=== PATIENT | female | born 1995 | race Caucasian/White ===

== ENCOUNTER 2017-03-04 09:30 | Outpatient (CLI) | payer BC, OTHER ==
[2017-03-04] MEDS ORDERED: SINCALIDE 1.3 MCG in SODIUM CHLORIDE 0.9% 100ML 100 ML IV ONE (11:59)
== END 2017-03-04 09:31 | disposition home or self-care (01) ==
DX: K80.80 Other cholelithiasis without obstruction (principal)
CPT/HCPCS: 78227; A9537

== ENCOUNTER 2017-03-16 12:34 | Outpatient (CLI) | payer BC, OTHER ==
[2017-03-16] MEDS ORDERED: IOPAMIDOL-300 50 ML VIAL PO ONE (17:27)
[2017-03-16] MEDS ORDERED: IOPAMIDOL-300 100 ML VIAL IVP ONE (17:27)
== END 2017-03-16 12:35 | disposition home or self-care (01) ==
DX: R10.9 Unspecified abdominal pain (principal)
CPT/HCPCS: 74178; Q9967

== ENCOUNTER 2017-04-05 09:39 | Day surgery (SDC) | payer BC, OTHER ==
[2017-04-05] MEDS ORDERED: ceFAZolin 2 GM/50 ML 50 ML IV ONE (09:45)
[2017-04-05 10:05] LABS: HCG UR QUAL NEGATIVE
[2017-04-05] MEDS ORDERED: LACTATED RINGERS 1,000 ML IV ONE ×2 (10:10→12:32)
[2017-04-05] MEDS ORDERED: NEOSTIGMINE 1 MG/1 ML 10 ML MDV IVP ONE (12:00)
[2017-04-05] MEDS ORDERED: SUCCINYLCHOLINE 200 MG/10 ML VIAL IVP ONE (12:00)
[2017-04-05] MEDS ORDERED: GLYCOPYRROLATE 1 MG/5 ML VIAL IVP ONE (12:00)
[2017-04-05] MEDS ORDERED: DEXAMETHASONE 4 MG/ML VIAL IVP ONE (12:00)
[2017-04-05] MEDS ORDERED: LIDOCAINE-PF 2% 10 ML AMP SUBQ ONE (12:00)
[2017-04-05] MEDS ORDERED: PROPOFOL 200 MG/20 ML VIAL IVP ONE (12:00)
[2017-04-05] MEDS ORDERED: ONDANSETRON 4 MG/2 ML VIAL IVP ONE (12:00)
[2017-04-05] MEDS ORDERED: ROCURONIUM 50 MG/5 ML VIAL IVP ONE (12:00)
[2017-04-05] MEDS ORDERED: ACETAMINOPHEN 1,000 MG/100 ML VIAL IV ONE (12:00)
[2017-04-05] MEDS ORDERED: MIDAZOLAM 2 MG/2 ML VIAL IVP ONE (12:00)
[2017-04-05] MEDS ORDERED: fentaNYL 100 MCG/2 ML VIAL IVP ONE (12:00)
[2017-04-05] MEDS ORDERED: BUPIVACAINE 0.5% PF 30 ML VIAL INFIL ONE (12:25)
--- NOTE | 2017-04-05 13:24 | OPERATIVE REPORT ---
Operative Report - General Procedure Date: 04/05/17 Planned Procedure: Laparoscopic cholecystectomy, possible open cholecystectomy, possible IOC, Pre-Op Diagnosis: Biliary colic Post Op Diagnosis: Biliary colic - Procedure Note Primary Surgeon: Mitch Anesthesia Provider: Ari Garrido Anesthesia Technique: General ET tube, Spinal (30 mL 1/2% marcaine) Estimated Blood Loss (in cc): 5 Drain/Tube Type: negative: Son drain, Constavac drain, Hemovac, Pantera Hameed flat drain, Pantera Hameed round drain, Pantera Hameed drain, Lumbar drain, Nephrostomy, Alison, Pig tail catheter, Self contained, T-tube, Other Complications: None but fluids = 800 mL - Other Other Information/Narrative: OPERATIVE DETAILS: After verbal and written informed consent was obtained detailing the risks of infection, bleeding with all of its risks including transfusion, common bile duct injury, and the patient was brought to the operative suite and placed in the supine position on the operating room table. Monitoring devices were applied along with TEDs and pneumatic compressive stockings. Care was taken to avoid pressure points. Prophylactic antibiotics were given. An adequate level of general endotracheal anesthesia was established by [name]. The abdomen was then prepped with ChloraPrep and draped in a sterile fashion. A "time in" then confirmed that the paitient was identified with 3 identifiers ( name, birthdate and medical record number), the history and physical was in the chart, the signed consent confirming the procedure was in the chart, the patient was in the correct position, the aforementioned prophylactic measures were in place or given, we had the correct personel and equipment to complete the procedure and that anesthesia, surgery and nursing were given an opportunuty to express any concerns. The initial incision was at the umbilicus and dissection to the linea alba was completed using blunt dissection. The linea alba was grasped with a Citlaly and incised. In a similar manner the peritoneum was grasped and incised using Metzenbaum scissors. In this location, a 12 mm blunt tipped, balloon tipped port was placed and the balloon was inflated to keep the port in position. The abdominal cavity was insufflated with carbon dioxide to steady-state pressure of 15 mmHg. Three additional 5 mm ports were placed in standard location for laparoscopic cholecystectomy (subxiphoid and 2 right subcostal). The gallbladder fundus was grasped with an atraumatic grasper. Multiple adhesions had to be taken down by blunt and sharp dissection along with electrocautery. Eventually, we identified the infundibulum, and this was then grasped and retracted inferior and laterally. Dissection was then begun in the angle of Calot. The cystic duct and (slightly medially and posteriorly) cystic artery were clearly identified. The critical view was obtained. Two clips proximally and one clip distally were used to control both the cystic duct and cystic artery. Both were then transected with laparoscopic theresa. The gallbladder was then removed from its fossa in a retrograde fashion using electrocautery. It was placed in an EndoCatch bag to be extracted through the 12 mm port site. I irrigated the right upper quadrant with a liter of warm sterile saline, and the area was aspirated dry. I inspected the gallbladder fossa and there was no bleeding or bile leak. Clips on the cystic duct and cystic artery appeared to be secure. I briefly visually explored the abdomen. There was no other evidence of overt pathology. I injected the port sites at the peritoneal, fascial, and skin levels under direct vision with 0.5% Marcaine. All ports and the EndoCatch containing the gallbladder were removed. The fascia at the umbilicus was reapproximated using 2 figure-of- eight 0 Vicryl sutures. The skin at each port site was approximated using a subcuticular 4-0 Monocryl. The surgical count of instruments, needles and sponges was reported as correct twice. Mastisol, Steri-Strips and sterile surgical dressings were applied. The patient was then awakened from anesthesia , extubated, and having tolerated the procedure well, was transported to the recovery room. No complications were encountered. A "time out" confirmed the operation performed, the fluids given, the estimated blood loss and anesthesia, surgery and nursing were given an opportunuty to express any concerns.
[2017-04-05] MEDS: HYDROmorphone 1 MG/ML SYRINGE ONE ×2 (13:38→13:48)
[2017-04-05] MEDS ORDERED: oxyCOD/ACETAMIN 5 MG/325 MG TABLET PO ONE (15:28)
[2017-04-05 15:36] VITALS: BP 99/44
== END 2017-04-05 09:40 | disposition home or self-care (01) ==
LOC: SDS 09:39
PROVIDERS: ATTEND Surgery
PROC: 0FT44ZZ Resection of Gallbladder, Percutaneous Endoscopic Approach (ICD-10-PCS; principal; 2017-04-05 10:45)
DX: K80.10 Calculus of gallbladder with chronic cholecystitis without obstruction (principal)
CPT/HCPCS: 47562; 81025; A9270; J0131; J0690; J1170; J7120; 88304

== ENCOUNTER 2019-04-12 17:43 | Emergency (ER) | payer BC, MEDICAID, OTHER ==
[2019-04-12] MEDS ORDERED: HYDROcod/ACETAM 5/325 MG TABLET PO STA (18:21)
[2019-04-12] MEDS ORDERED: IBUPROFEN 800 MG TABLET PO STA (18:21)
--- NOTE | 2019-04-12 18:23 | ED Physician Documentation ---
PD HPI CHEST PAIN - Stated complaint Stated Complaint: CP - Chief complaint Chief Complaint: Cardiac - History obtained from History obtained from: Patient - History of Present Illness Timing - onset: Today (23-year-old woman with history of exercise-induced asthma presents with central chest pain that has radiated to either side since 7 AM this morning which has been almost completely constant with the exception of a few episodes where she was pain-free for a minute or 2. Associated with shortness of breath. Its worse with motion and lying flat. She denies pedal edema or calf pain. She is on Nexplanon for control. No history of PE or DVT. No recent travel.) Review of Systems Ten Systems: 10 systems reviewed and negative Constitutional: denies: Fever, Chills Throat: denies: Sore throat Cardiac: denies: Palpitations, Pedal edema, Calf pain Respiratory: denies: Hemoptysis, Wheezing PD PAST MEDICAL HISTORY - Past Medical History Cardiovascular: None Respiratory: Asthma Endocrine/Autoimmune: None GI: None : None HEENT: None Psych: Depression, Anxiety Musculoskeletal: None Derm: None - Past Surgical History Past Surgical History: Yes HEENT: Tonsil/Adenoidectomy - Present Medications Home Medications: Ambulatory Orders Medication Instructions Recorded Confirmed Hydrocodone/Acetaminophen 1 - 2 each PO Q6H PRN #7 tablet 04/12/19 [Hydrocodon-Acetaminophen 5-325] Ibuprofen [Motrin] 800 mg PO Q8H PRN #30 tablet 04/12/19 - Allergies Allergies/Adverse Reactions: Allergies Allergy/AdvReac Type Severity Reaction Status Date / Time azithromycin [From Zithromax] Allergy Rash Verified 03/30/17 17:14 clindamycin Allergy Rash Verified 03/30/17 17:01 adhesive AdvReac Hives Verified 03/30/17 17:01 codeine phosphate * AdvReac Rash Verified 03/30/17 17:13 [From Tylenol-Codeine #3] latex AdvReac Hives Verified 03/30/17 17:01 - Social History Does the pt smoke?: No Smoking Status: Never smoker Does the pt drink ETOH?: No Does the pt have substance abuse?: No - Immunizations Immunizations are current?: Yes - POLST Patient has POLST: No PD ED PE NORMAL - Vitals Vital signs reviewed: Yes - General General: Alert and oriented X 3, No acute distress - HEENT HEENT: PERRL, EOMI - Neck Neck: Supple, no meningeal sign, No bony TTP - Cardiac Cardiac: RRR, No murmur - Respiratory Respiratory: No respiratory distress, Clear bilaterally - Abdomen Abdomen: Non tender - Extremities Extremities: No edema, No calf tenderness / cord - Neuro Neuro: Alert and oriented X 3, Normal speech Results - Vitals Vitals: Vital Signs - 24 hr 04/12/19 04/12/19 04/12/19 17:46 18:27 19:00 Temperature 36.3 C L Heart Rate 69 81 80 Respiratory 22 26 H 20 Rate Blood Pressure 131/75 H 121/91 H 124/81 H O2 Saturation 99 100 100 Oxygen O2 Source Room air - EKG (time done) 1745 Rate: Rate (enter#) (78) Rhythm: NSR [place]: Normal Intervals: Normal [place] QRS: Normal Ischemia: Normal ST segments Computer interpretation: Agree with computer - Labs Labs: Laboratory Tests 04/12/19 04/12/19 04/12/19 18:29 18:29 18:29 WBC 10.6 RBC 4.84 Hgb 12.8 Hct 39.4 MCV 81.4 MCH 26.4 L MCHC 32.4 RDW 16.3 H Plt Count 293 MPV 8.5 Neut # (Auto) 6.9 H Lymph # (Auto) 3.0 [place] # (Auto) 0.6 Eos # (Auto) 0.1 Baso # (Auto) 0.1 Absolute Nucleated RBC 0.00 Nucleated RBC % 0.0 D-Dimer 200.9 Sodium 138 Potassium 3.5 Chloride 101 Carbon Dioxide 25 Anion Gap 12.0 BUN 13 Creatinine 0.7 Estimated GFR (MDRD) 103 Glucose 107 H Calcium 9.9 Total Bilirubin 0.4 AST 22 ALT 18 Alkaline Phosphatase 77 Troponin I Total Protein 8.3 H Albumin 4.5 Globulin 3.8 Albumin/Globulin Ratio 1.2 Lipase 36 Urine Color Urine Clarity Urine pH Ur Specific [place] Urine Protein Urine Glucose (UA) Urine Ketones Urine Occult Blood Urine Nitrite Urine Bilirubin Urine Urobilinogen Ur Leukocyte Esterase Ur Microscopic Review Urine Culture Comments Urine HCG, Qual 04/12/19 04/12/19 18:29 18:30 WBC RBC Hgb Hct MCV MCH MCHC RDW Plt Count MPV Neut # (Auto) Lymph # (Auto) [place] # (Auto) Eos # (Auto) Baso # (Auto) Absolute Nucleated RBC Nucleated RBC % D-Dimer Sodium Potassium Chloride Carbon Dioxide Anion Gap BUN Creatinine Estimated GFR (MDRD) Glucose Calcium Total Bilirubin AST ALT Alkaline Phosphatase Troponin I < 0.04 Total Protein Albumin Globulin Albumin/Globulin Ratio Lipase Urine Color YELLOW Urine Clarity CLEAR Urine pH 7.0 Ur Specific [place] <=1.005 Urine Protein NEGATIVE Urine Glucose (UA) NEGATIVE Urine Ketones NEGATIVE Urine Occult Blood NEGATIVE Urine Nitrite NEGATIVE Urine Bilirubin NEGATIVE Urine Urobilinogen 0.2 (NORMAL) Ur Leukocyte Esterase NEGATIVE Ur Microscopic Review NOT INDICATED Urine Culture Comments NOT INDICATED Urine HCG, Qual NEGATIVE PD MEDICAL DECISION MAKING - ED course ED course: HEART score zero DImer neg Departure - Departure Disposition: 01 Home, Self Care Clinical Impression: Chest pain Condition: Good Record reviewed to determine appropriate education?: Yes Instructions: ED Chest Pain NonCardiac Prescriptions: Hydrocodone/Acetaminophen [Hydrocodon-Acetaminophen 5-325] 1 - 2 each PO Q6H PRN #7 tablet PRN Reason: pain Ibuprofen [Motrin] 800 mg PO Q8H PRN #30 tablet PRN Reason: PAIN &/OR FEVER Comments: Call your doctor to arrange a follow-up appointment, make the next available appointment. In the interim, return anytime if worse or if new symptoms develop. Discharge Date/Time: 04/12/19 19:29
[2019-04-12 18:37] LABS: BASOPHILS # (AUTO) 0.1 10^3/uL (0.0-0.1); BASOPHILS % (AUTO) 0.7 %; EOSINOPHILS # (AUTO) 0.1 10^3/uL (0.0-0.7); EOSINOPHILS % (AUTO) 0.8 %; HGB - HEMOGLOBIN 12.8 g/dL (12.0-16.0); LYMPHOCYTES % (AUTO) 27.8 %; MEAN CORPUSCULAR HEMOGLOBIN 26.4 pg (27.0-31.0); MEAN CORPUSCULAR HGB CONC 32.4 g/dL (32.0-36.0); MEAN CORPUSCULAR VOLUME 81.4 fL (81.0-99.0); MEAN PLATELET VOLUME 8.5 fL (7.9-10.8); MONOCYTES # (AUTO) 0.6 10^3/uL (0.0-1.0); MONOCYTES % (AUTO) 5.5 %; NEUTROPHILS # (AUTO) 6.9 10^3/uL (1.5-6.6); NEUTROPHILS % (AUTO) 65.2 %; PLT - PLATELET COUNT 293 10^3/uL (130-450); RED BLOOD COUNT 4.84 10^6/uL (4.20-5.40); RED CELL DISTRIBUTION WIDTH 16.3 % (12.0-15.0); WHITE BLOOD COUNT 10.6 x10^3/uL (4.8-10.8)
[2019-04-12 18:45] LABS: BILIRUBIN,URINE NEGATIVE (NEGATIVE); GLUCOSE, URINE (UA) NEGATIVE (NEGATIVE); KETONES,URINE (UA) NEGATIVE (NEGATIVE); LEUKOCYTE ESTERASE, URINE NEGATIVE (NEGATIVE); NITRITE,URINE NEGATIVE (NEGATIVE); OCCULT BLOOD,URINE NEGATIVE (NEGATIVE); PROTEIN,URINE NEGATIVE (NEGATIVE); UROBILINOGEN,URINE 0.2 (NORMAL) E.U./dL (NORMAL)
[2019-04-12 18:48] LABS: ALBUMIN 4.5 g/dL (3.2-5.5); ALBUMIN/GLOBULIN RATIO 1.2 (1.0-2.2); BILIRUBIN,TOTAL 0.4 mg/dL (0.2-1.0); CALCIUM 9.9 mg/dL (8.5-10.3); CREATININE 0.7 mg/dL (0.4-1.0); TOTAL PROTEIN 8.3 g/dL (6.7-8.2)
[2019-04-12 18:48] LABS: CLARITY,URINE CLEAR (CLEAR); HCG UR QUAL NEGATIVE
--- NOTE | 2019-04-12 19:04 | XRAY Report ---
Reason: chest paiin Procedure Date: 04/12/2019 Accession Number: [id number] / [id number] Procedure: XR - Chest 2 View X-Ray CPT Code: 08742 FULL RESULT: EXAM: CHEST RADIOGRAPHY EXAM DATE: 04/12/2019 06:51 PM. CLINICAL HISTORY: Chest pain COMPARISON: CHEST 2 VIEW PA/LAT 10/31/2015 2:56 PM. TECHNIQUE: 2 views. FINDINGS: Lungs/Pleura: No focal opacities evident. No pleural effusion. No pneumothorax. Normal volumes. Mediastinum: Heart and mediastinal contours are unremarkable. Other: None. IMPRESSION: Negative for an acute cardiopulmonary abnormality. RADIA
[2019-04-12 19:29] VITALS: BP 124/81
== END 2019-04-12 19:29 | disposition home or self-care (01) ==
LOC: ED 17:43
DX: R07.9 Chest pain, unspecified (principal); J45.990 Exercise induced bronchospasm; Z79.3 Long term (current) use of hormonal contraceptives
CPT/HCPCS: 36415; 71046; 80053; 81003; 81025; 83690; 84484; 85025; 85379; 93005; 99283; A9270; 81001; 87086

== ENCOUNTER 2021-08-25 17:51 | Emergency (ER) | payer MEDICAID ==
[2021-08-25] MEDS ORDERED: MAG HYDROX/AL HYDROX/SIMETH 30 ML UDC PO STA (19:19)
--- NOTE | 2021-08-25 19:19 | ED Physician Documentation ---
PD HPI ABD PAIN - Stated complaint Stated Complaint: CP/ABD PX - Chief complaint Chief Complaint: Cardiac - History obtained from History obtained from: Patient - Additional information Additional information: This is a 26-year-old female who presented with generalized abdominal pain radiating up into the chest. Pain is in variable spots around the abdomen both the left lower quadrant and right upper quadrant at times. Pain started earlier today, no associated fever, chills, cough or URI symptoms, vomiting, diarrhea, constipation, dysuria or urinary symptoms. Denies vaginal discharge or concern for STI. She states her last menstrual period was in early July as she is on Nexplanon. She has had a Nexplanon for approximately 3 years. She does have a history of a cholecystectomy for biliary colic as well as multiple prior episodes according to her of similar abdominal pain that has been largely unexplained, and typically goes away on its own but is severe when present. She has not attempted any medication or other treatment for this pain. She has done various diet modifications and tried to track menstrual cycles, stress, food intake to see if there are any triggers and she cannot identify any. No history of blood clot, no history of prolonged immobility, no history of cancer. Review of Systems Constitutional: reports: Reviewed and negative Eyes: reports: Reviewed and negative Ears: reports: Reviewed and negative Nose: reports: Reviewed and negative Throat: reports: Reviewed and negative Cardiac: reports: Chest pain / pressure. denies: Palpitations, Pedal edema, Calf pain Respiratory: reports: Reviewed and negative GI: reports: Abdominal Pain. denies: Abdominal Swelling, Nausea, Vomiting, Constipation, Diarrhea, Hematemesis, Bloody / black stool : reports: Missed period, Control. denies: Dysuria, Frequency, Hesitancy, Unable to Void, Incontinent, Hematuria, Discharge, Vaginal bleeding, Irregular menses Skin: reports: Reviewed and negative Musculoskeletal: reports: Reviewed and negative Neurologic: reports: Reviewed and negative Psychiatric: reports: Reviewed and negative Endocrine: reports: Reviewed and negative PD PAST MEDICAL HISTORY - Past Medical History Cardiovascular: None Respiratory: Asthma Endocrine/Autoimmune: None GI: None : None HEENT: None Psych: Depression, Anxiety Musculoskeletal: None Derm: None - Past Surgical History Past Surgical History: Yes HEENT: Tonsil/Adenoidectomy - Present Medications Home Medications: Ambulatory Orders Medication Instructions Recorded Confirmed Hydrocodone/Acetaminophen 1 - 2 each PO Q6H PRN #7 tablet 04/12/19 [Hydrocodon-Acetaminophen 5-325] Ibuprofen [Motrin] 800 mg PO Q8H PRN #30 tablet 04/12/19 HYDROcod/ACETAM 5/325 [[place] 5/325] 1 - 2 tablet PO Q6H PRN #10 tablet 08/25/21 Ondansetron Odt [Zofran Odt] 4 mg TL Q6H PRN #10 tablet 08/25/21 cephALEXin [Keflex] 500 mg PO BID #10 08/25/21 - Allergies Allergies/Adverse Reactions: Allergies Allergy/AdvReac Type Severity Reaction Status Date / Time azithromycin [From Zithromax] Allergy Rash Verified 08/25/21 18:09 clindamycin Allergy Rash Verified 08/25/21 18:09 adhesive AdvReac Hives Verified 08/25/21 18:09 codeine phosphate * AdvReac Rash Verified 08/25/21 18:09 [From Tylenol-Codeine #3] latex AdvReac Hives Verified 08/25/21 18:09 - Social History Does the pt smoke?: No Smoking Status: Never smoker Does the pt drink ETOH?: No Does the pt have substance abuse?: No - Immunizations Immunizations are current?: Yes - POLST Patient has POLST: No PD ED PE NORMAL - Vitals Vital signs reviewed: Yes - General General: Alert and oriented X 3, No acute distress, Well developed/nourished - HEENT HEENT: Atraumatic, Moist mucous membranes - Cardiac Cardiac: RRR, No murmur - Respiratory Respiratory: No respiratory distress, Clear bilaterally - Abdomen Abdomen: Normal bowel sounds, Soft, Non distended, No organomegaly, Other (Generalized non focal tenderness. ) - Back Back: No CVA TTP, No spinal TTP - Derm Derm: Normal color, Warm and dry, No rash - Extremities Extremities: No deformity, No tenderness to palpate, Normal ROM s pain, No edema, No calf tenderness / cord - Neuro Neuro: Alert and oriented X 3, No motor deficit, No sensory deficit, Normal speech Eye Opening: Spontaneous Motor: Obeys Commands Verbal: Oriented GCS Score: 15 - Psych Psych: Normal mood, Normal affect Results - Vitals Vitals: Vital Signs - 24 hr 08/25/21 08/25/21 08/25/21 18:05 20:09 22:00 Temperature 36.9 C Heart Rate 87 94 91 Respiratory 20 32 H 22 Rate Blood Pressure 139/92 H 128/79 149/85 H O2 Saturation 97 98 96 08/25/21 22:31 Temperature 36.8 C Heart Rate 88 Respiratory 21 Rate Blood Pressure 142/84 H O2 Saturation 98 Oxygen O2 Source Room air - EKG (time done) No standard instances Rate: Rate (enter#) (93) Rhythm: NSR [place]: Normal Intervals: Normal [place] QRS: Normal Ischemia: Normal ST segments Computer interpretation: Agree with computer - Labs Labs: Laboratory Tests 08/25/21 08/25/21 08/25/21 19:24 19:24 19:24 WBC 11.6 H RBC 4.53 Hgb 12.8 Hct 39.9 MCV 88.1 MCH 28.3 MCHC 32.1 RDW 12.8 Plt Count 268 MPV 10.2 Neut # (Auto) 6.7 H Lymph # (Auto) 3.9 H [place] # (Auto) 0.8 Eos # (Auto) 0.1 Baso # (Auto) 0.1 Absolute Nucleated RBC 0.00 Nucleated RBC % 0.0 Sodium 135 Potassium 3.7 Chloride 99 L Carbon Dioxide 28 Anion Gap 8.0 BUN 13 Creatinine 0.6 Estimated GFR (MDRD) 120 Glucose 91 Calcium 9.4 Total Bilirubin 0.5 AST 17 ALT 23 Alkaline Phosphatase 73 Troponin I High Sens Total Protein 7.4 Albumin 4.4 Globulin 3.0 Albumin/Globulin Ratio 1.5 Lipase 30 HCG, Quant < 0.60 Urine Color Urine Clarity Urine pH Ur Specific [place] Urine Protein Urine Glucose (UA) Urine Ketones Urine Occult Blood Urine Nitrite Urine Bilirubin Urine Urobilinogen Ur Leukocyte Esterase Urine RBC Urine WBC Ur Squamous Epith Cells Urine Bacteria Ur Microscopic Review Urine Culture Comments 08/25/21 08/25/21 19:24 19:50 WBC RBC Hgb Hct MCV MCH MCHC RDW Plt Count MPV Neut # (Auto) Lymph # (Auto) [place] # (Auto) Eos # (Auto) Baso # (Auto) Absolute Nucleated RBC Nucleated RBC % Sodium Potassium Chloride Carbon Dioxide Anion Gap BUN Creatinine Estimated GFR (MDRD) Glucose Calcium Total Bilirubin AST ALT Alkaline Phosphatase Troponin I High Sens 2.6 Total Protein Albumin Globulin Albumin/Globulin Ratio Lipase HCG, Quant Urine Color YELLOW Urine Clarity SL. CLOUDY Urine pH 5.5 Ur Specific [place] >=1.030 H Urine Protein NEGATIVE Urine Glucose (UA) NEGATIVE Urine Ketones NEGATIVE Urine Occult Blood SMALL H Urine Nitrite NEGATIVE Urine Bilirubin NEGATIVE Urine Urobilinogen 0.2 (NORMAL) Ur Leukocyte Esterase MODERATE H Urine RBC 0-5 Urine WBC 6-10 H Ur Squamous Epith Cells MANY Squamous H Urine Bacteria Rare Ur Microscopic Review INDICATED Urine Culture Comments NOT INDICATED PD MEDICAL DECISION MAKING - ED course Complexity details: reviewed results, re-evaluated patient, considered differential, d/w patient ED course: Patient presented with generalized abdominal pain radiating to the chest. History of a cholecystectomy. Differentials considered today included ACS, PE, pancreatitis, gastritis, diverticulitis, UTI or other acute abdominal process. We obtained a cardiac work-up including EKG which is reassuring, troponin is negative, labs are only significant for a white blood cell count 11.6. Proceeded with a CT as patient had unresolved abdominal pain. CT reassuring, no acute processes. Patient received 2 of morphine and 4 of Zofran and had some improvement in her pain. She does state that she has had episodes like this periodically over the course the last several years often they have been unable to find a specific diagnosis and the pain eventually resolved on its own. I will discharge patient home with a short-term pain and nausea medication advised to light diet, recommended diet diary and follow-up with PCP, consider follow-up with GI if continuing to have episodes of this type of pain. Return if develop fever, vomiting, increased pain or otherwise new concerns. Departure - Departure Disposition: 01 Home, Self Care Clinical Impression: Dyspepsia UTI (urinary tract infection) Qualifiers: Urinary tract infection type: acute cystitis Hematuria presence: without johanna turia Qualified Code(s): N30.00 - Acute cystitis without hematuria Abdominal pain Qualifiers: Abdominal location: generalized Qualified Code(s): R10.84 - Generalized abdominal pain Condition: Good Instructions: ED Abdominal Pain Female Non-Specific Abdominal Pain Prescriptions: cephALEXin [Keflex] 500 mg PO BID #10 HYDROcod/ACETAM 5/325 [[place] 5/325] 1 - 2 tablet PO Q6H PRN #10 tablet PRN Reason: Pain Ondansetron Odt [Zofran Odt] 4 mg TL Q6H PRN #10 tablet PRN Reason: Nausea / Vomiting Comments: You presented with abdominal pain radiating into the chest. We did a work-up including labs, CT of your abdomen, and cardiac work-up and these were all largely reassuring. There were no acute findings on the CT scan, your labs were stable and your EKG was normal. You do have some bacteria in your urine and I suspect this is a contaminant but I am going to treat you for a possible UTI with 5 days of an antibiotic called Keflex. We will treat your abdominal pain with a bland diet, avoid any high fat, fried, or spicy foods, and you may take antinausea medicine named Zofran and hydrocodone if needed for the pain. If you develop a fever, increasing abdominal pain or otherwise worsening symptoms, return to the ER. Discharge Date/Time: 08/25/21 22:33
[2021-08-25 19:29] LABS: BASOPHILS # (AUTO) 0.1 10^3/uL (0.0-0.1); BASOPHILS % (AUTO) 0.5 %; EOSINOPHILS # (AUTO) 0.1 10^3/uL (0.0-0.7); EOSINOPHILS % (AUTO) 1.1 %; HCT - HEMATOCRIT 39.9 % (37.0-47.0); HGB - HEMOGLOBIN 12.8 g/dL (12.0-16.0); LYMPHOCYTES # (AUTO) 3.9 10^3/uL (1.5-3.5); LYMPHOCYTES % (AUTO) 33.8 %; MEAN CORPUSCULAR HEMOGLOBIN 28.3 pg (27.0-31.0); MEAN CORPUSCULAR HGB CONC 32.1 g/dL (32.0-36.0); MEAN CORPUSCULAR VOLUME 88.1 fL (81.0-99.0); MEAN PLATELET VOLUME 10.2 fL (7.9-10.8); MONOCYTES # (AUTO) 0.8 10^3/uL (0.0-1.0); MONOCYTES % (AUTO) 6.6 %; NEUTROPHILS # (AUTO) 6.7 10^3/uL (1.5-6.6); NEUTROPHILS % (AUTO) 57.7 %; PLT - PLATELET COUNT 268 10^3/uL (130-450); RED BLOOD COUNT 4.53 10^6/uL (4.20-5.40); RED CELL DISTRIBUTION WIDTH 12.8 % (12.0-15.0); WHITE BLOOD COUNT 11.6 x10^3/uL (4.8-10.8)
[2021-08-25 19:45] LABS: ALBUMIN 4.4 g/dL (3.2-5.5); ALBUMIN/GLOBULIN RATIO 1.5 (1.0-2.2); BILIRUBIN,TOTAL 0.5 mg/dL (0.2-1.0); CALCIUM 9.4 mg/dL (8.5-10.3); CREATININE 0.6 mg/dL (0.4-1.0); POTASSIUM 3.7 mmol/L (3.5-5.0); TOTAL PROTEIN 7.4 g/dL (6.7-8.2)
[2021-08-25 20:08] LABS: BILIRUBIN,URINE NEGATIVE (NEGATIVE); GLUCOSE, URINE (UA) NEGATIVE (NEGATIVE); KETONES,URINE (UA) NEGATIVE (NEGATIVE); LEUKOCYTE ESTERASE, URINE MODERATE (NEGATIVE); NITRITE,URINE NEGATIVE (NEGATIVE); OCCULT BLOOD,URINE SMALL (NEGATIVE); PH,URINE 5.5 PH (5.0-7.5); PROTEIN,URINE NEGATIVE (NEGATIVE); UROBILINOGEN,URINE 0.2 (NORMAL) E.U./dL (NORMAL)
[2021-08-25 20:28] LABS: CLARITY,URINE SL. CLOUDY (CLEAR)
[2021-08-25 20:29] LABS: BACTERIA,URINE Rare /HPF (None Seen); RBC,URINE 0-5 /HPF (0-5); SQUAMOUS EPITHELIAL CELL,UR MANY Squamous (<= Few)
[2021-08-25] MEDS ORDERED: IOVERSOL 320 100 ML VIAL IVP ONE ×2 (20:48→21:27)
--- NOTE | 2021-08-25 21:46 | CT Report ---
PROCEDURE: Abdomen/Pelvis W INDICATIONS: Abd pain CONTRAST: IV CONTRAST: Optiray 320 ml: 100 PO CONTRAST: *NO PO CONTRAST TECHNIQUE: After the administration of intravenous contrast, 5 mm thick sections acquired from the diaphragms to the symphysis. 5 mm thick coronal and sagittal reformats were acquired. For radiation dose reducti on, the following was used: automated exposure control, adjustment of mA and/or kV according to charo ent size. COMPARISON: None. FINDINGS: Image quality: Excellent. ABDOMEN: Lung bases: Lung bases are clear. Heart size is normal. Solid organs: The visualized liver demonstrates no discrete hepatic lesions. The right hepatic dome is incompletely occluded on the current study. The gallbladder is surgically absent. Biliary system i s non dilated. Pancreas enhances normally. No adrenal nodules. Kidneys demonstrate no hydronephros is. Peritoneum and bowel: Bowel loops demonstrate normal wall thickness and caliber. The appendix is no rmal in appearance. There is colonic diverticulosis without acute diverticulitis. No free fluid or ai r. Nodes and vessels: No retroperitoneal or mesenteric adenopathy by size criteria. Aorta and inferior vena cava are normal in size. Miscellaneous: No ventral hernias. PELVIS: Genitourinary: Bladder wall thickness is normal. The uterus and ovaries appear within normal size li mits. Miscellaneous: No inguinal hernias or adenopathy. Bones: No suspicious bony lesions. No vertebral body compression fractures. IMPRESSION: 1. No definite acute intra-abdominal abnormality. 2. Colonic diverticulosis without acute diverticulitis. Reviewed by: Chandana Burgess MD on 08/25/2021 9:45 PM PDT Approved by: Chandana Burgess MD on 08/25/2021 9:45 PM PDT Station ID: [id number]
[2021-08-25] MEDS ORDERED: MORPHINE 2 MG/ML CARPUJECT IVP STA (22:04)
[2021-08-25] MEDS ORDERED: ONDANSETRON 4 MG/2 ML VIAL IVP STA (22:04)
[2021-08-25 22:32] VITALS: BP 142/84
== END 2021-08-25 22:33 | disposition home or self-care (01) ==
LOC: ED 17:51
DX: K30 Functional dyspepsia (principal); N30.00 Acute cystitis without hematuria; R07.9 Chest pain, unspecified; Z90.49 Acquired absence of other specified parts of digestive tract
CPT/HCPCS: 36415; 74177; 80053; 81001; 83690; 84484; 84702; 85025; 93005; 96374; 96375; 99284; A9270; Q9967; 81003; 87086